=== PATIENT | female | born 1965 | race American Indian/Alaskan Native ===

== ENCOUNTER 2022-01-21 19:00 | Emergency (ER) | payer SELFPAY ==
[2022-01-21 19:53] VITALS: BP 121/95
[2022-01-21] MEDS ORDERED: ASPIRIN 325 MG TAB PO ONE (19:53)
--- NOTE | 2022-01-21 20:02 | Emergency Department Report ---
Blank Doc - Documentation Documentation: EKG reviewed by myself and reviewed by cardiac interventionalists Dr. Giordano. He is in agreement that EKG findings likely a result early repolarizatio. patient does not have ST elevation [place] and does not meet criteria for acute catheterization at this time. Further work-up and evaluation pending
--- NOTE | 2022-01-21 20:26 | XRay Report ---
CHEST PA AND LATERAL VIEWS INDICATION: chest pain. COMPARISON: None. FINDINGS: Support devices: None. Heart: Within normal limits. Lungs/Pleura: No acute pulmonary or pleural findings. IMPRESSION: 1. No acute findings. Signer Name: Cal Hernandez MD Signed: 01/21/2022 8:22 PM Workstation Name: [id number]
[2022-01-21 21:26] LABS: Basophils # (Auto) 0.2 K/mm3 (0.0-0.1); Basophils % (Auto) 2.4 % (0.0-1.8); Eosinophils % (Auto) 0.2 % (0.0-4.3); Hematocrit 40.4 % (30.3-42.9); Hemoglobin 13.6 gm/dl (10.1-14.3); Lymphocytes # (Auto) 0.4 K/mm3 (1.2-5.4); Lymphocytes % (Auto) 5.5 % (13.4-35.0); Mean Corpuscular HGB Conc 34 % (30-34); Mean Corpuscular Volume 91 fl (79-97); Monocytes # (Auto) 0.3 K/mm3 (0.0-0.8); Monocytes % (Auto) 4.4 % (0.0-7.3); Platelet Count 250 K/mm3 (140-440); Red Blood Count 4.45 M/mm3 (3.65-5.03); Red Cell Distribution Width 13.3 % (13.2-15.2)
[2022-01-21 21:38] LABS: INR 0.96 (0.87-1.13)
[2022-01-21 21:49] LABS: Alanine Aminotransferase 37 units/L (7-56); Albumin 4.1 g/dL (3.9-5); Blood Urea Nitrogen 18 mg/dL (7-17); Calcium 9.4 mg/dL (8.4-10.2); Hemolysis Index 5
[2022-01-21 21:54] LABS: BUN/Creatinine Ratio 30
--- NOTE | 2022-01-23 17:40 | Electrocardiograph Report ---
[facility] Test Date: 2022-01-21 Test Time: 19:49:42 Pat Name: CHAD TOBAR Department: Room: Gender: F Mechanical Specialist: HIWOT : 1965 Requested By: GEMA LIPSCOMB Order Number: [id number] Reading MD: James Giordano Measurements Intervals [place] Rate: 54 P: 87 CT: 110 QRS: 83 QRSD: 94 T: 85 QT: 525 QTc: 500 Interpretive Statements Sinus bradycardia Early repolarization ST changes No previous ECG available for comparison Electronically Signed On 01-23-2022 17:40:16 EDT by James Giordano
== END 2022-01-22 03:00 | disposition left against medical advice (07) ==
LOC: ED 19:00
DX: R07.9 Chest pain, unspecified (principal); R20.0 Anesthesia of skin; Z53.21 Procedure and treatment not carried out due to patient leaving prior to being seen by health care provider
CPT/HCPCS: 36415; 71046; 80053; 84484; 85025; 85610; 93005; 99283